=== PATIENT | female | born 1990 | race Hispanic/Latino ===

== ENCOUNTER 2024-05-30 10:33 | Emergency (ER) | payer BC ==
[~2024-05-30] VITALS: Ht 162.6 cm; Wt 142.9 kg
[2024-05-30 10:36] VITALS: BP 181/96; PULSE 100; RESP 18
[2024-05-30 11:15] LABS: INFLUENZA TYPE A Negative For Type A (NEGATIVE); INFLUENZA TYPE B Negative For Type B (NEGATIVE)
[2024-05-30 11:23] LABS: SARS-CoV-2, RNA, NAAT POSITIVE SARS CoV-2 (NEGATIVE)
== END 2024-05-30 12:32 | disposition home or self-care (01) ==
LOC: EDH 10:33
DX: U07.1 COVID-19 (principal); Z88.0 Allergy status to penicillin
CPT/HCPCS: 87635; 87804; 87880